=== PATIENT | female | born 1990 | race Caucasian/White ===

== ENCOUNTER → 2016-12-08 | Outpatient (CLI) | payer OTHER ==
[2016-12-08 10:55] LABS: HEMATOCRIT 42.7 % (37.0-47.0); HEMOGLOBIN 14.3 g/dL (12.0-16.0); MEAN CORPUSCULAR HEMOGLOBIN 29.9 PG (27-31); MEAN CORPUSCULAR HGB CONC 33.5 g/dL (33-37); MEAN CORPUSCULAR VOLUME 89.1 FL (81-99); MEAN PLATELET VOLUME 9.4 FL (7.4-12.2); RED BLOOD COUNT 4.79 10^6/uL (4.20-5.40)
[2016-12-08 11:04] LABS: BLOOD UREA NITROGEN 8 mg/dL (7-22); BUN/CREATININE RATIO 11.42 (6-20); CALCIUM 9.3 mg/dL (8.7-10.7); EST GLOMERULAR FILTRATION > 60 (>60 ml/min/1.73m(2)); SERUM ALBUMIN 4.4 g/dL (3.5-4.8)
[2016-12-08 11:48] LABS: CHOL/HDL RATIO 3.56 RATIO (0-4.0); LDL CHOLESTEROL,CALCULATED 80.2 mg/dL
== END ==
LOC: LAB 10:32
PROVIDERS: ATTEND Family Medicine
DX: Z00.00 Encounter for general adult medical examination without abnormal findings (principal); E03.9 Hypothyroidism, unspecified; M32.9 Systemic lupus erythematosus, unspecified; G40.909 Epilepsy, unspecified, not intractable, without status epilepticus
CPT/HCPCS: 36415; 80053; 80061; 84439; 84443; 85027; 85652

== ENCOUNTER → 2017-01-15 | Outpatient (CLI) | payer OTHER ==
--- NOTE | 2017-01-15 16:20 | DI ---
US PELVIC-TRANSVAGINAL,01/15/2017 2:29 PM: Clinical History: Verify placement of intrauterine device. Previous Exam: None at this facility. Findings: Multiple transvaginal grayscale and color Doppler sonographic images are obtained through the pelvis demonstrating a normal retroverted uterus measuring 7.0 x 4.3 x 3.6 cm containing a linear hyperechoi c area with posterior shadowing within the uterine fundus. The right ovary measures 3.2 0.3 x 1.5 cm containing both venous and arterial Doppler waveforms. Left ovary measures 2.6 x 2.0 x 1.3 cm also with normal Doppler flow. Impression: Intrauterine device in good position in the fundal portion of the endometrial canal.
== END ==
LOC: US 14:23
PROVIDERS: ATTEND Family Medicine
DX: Z30.430 Encounter for insertion of intrauterine contraceptive device (principal)
CPT/HCPCS: 76830

== ENCOUNTER 2017-02-16 21:14 | Emergency (ER) | payer OTHER ==
[2017-02-16 21:26] VITALS: RESP 20; TEMP 96.1
[2017-02-16] MEDS ORDERED: SUMAtriptan Succinate 6 MG/0.5 ML SUBCUT ONE (21:34)
--- NOTE | 2017-02-17 06:27 | PDOC ---
Headache HPI - General Chief Complaint: Headache Stated Complaint: MIGRAIN Date Seen by Provider: 02/16/17 Time Seen by Provider: 21:20 Source: POSITIVE: Patient Exam Limitations: POSITIVE: No limitations Nurse's Notes Reviewed & Considered: Yes - History of Present Illness Initial Comments: The patient is a 27-year-old female. She presents to the emergency room complaining of a bifrontal headache since around 1 PM today. She states she has a long-standing history of similar episodes and states she's been diagnosed with migraine headaches. She states she's had normal CT scans and MRI scans of the brain. She states that she has been prescribed Imitrex subcutaneous to be used at home for her episodes, but has been out of this medication recently. Present headache is identical to her previous episodes. She's had some associated nausea but no vomiting. Mild photophobia. She states she gets an episode of headache every few weeks and can have one to 3 episodes per month. Body Location Affected: REPORTS: Head Timing: REPORTS: Constant, Gradual Duration: <24 hours (8-9 hours) Severity: Moderate Quality: REPORTS: Throbbing Context: DENIES: CO Exposure, Tick Bite, Insect Bite, Recent Head Injury, Other Associated Symptoms: REPORTS: Sensitivity to Light, Nausea. DENIES: Fever, Chills, Sweating, Problems with Vision, Visual Disturb Preceding, [place] Preceding, Typical of Prior Aura(s), Vomiting, Neck Pain, Stiffness, Speech Problems, Weakness, Trouble Walking, Tingling, Numbness, Dizziness, Lightheadedness, Other Exacerbated by: REPORTS: Light Any Prior Injuries Related to Current Complaint?: No - Patient Home Medications Home Medications: Home Medications Levonorgestrel [Mirena] 1 each IY PROCEDURE unit 12/02/16 Levothyroxine Sodium [Synthroid] 1 tab PO DAILY #30 tab 12/16/16 Levetiracetam [Keppra] 1,000 mg PO BID #75 tab 12/23/16 - Patient Allergies Allergies/Adverse Reactions: Allergies Allergy/AdvReac Type Severity Reaction Status Date / Time ondansetron HCl Allergy Unknown DYSPHORIA Verified 02/16/17 21:16 [From Zofran (as hydrochloride)] Sulfa (Sulfonamide Allergy Unknown RASH Verified 02/16/17 21:16 Antibiotics) Penicillins Allergy HIVES Verified 02/16/17 21:16 Past Medical History - heen HEENT History: Denies History Cardiovascular History: Denies History Respiratory History: Denies History Gastrointestinal History: Denies History Genitourinary History: Denies History Endocrine History: Lupus Musculoskeletal History: Denies History Neurological History: Seizures Blood Disorders: Denies History Psychiatric History: Denies History Female Reproductive History: Denies History Obstetrical History: Denies History Cancer History: Denies History In Past Year Been Physically Harmed or Verbally Threatened: No History of MDRO: No Tobacco Use: Never Smoker Alcohol Use: Occasionally Substance Use Type: None Previous Surgical History: No Significant Family History: No pertinent family hx Past Medical History Reviewed: Reviewed - No Changes ROS - Limitations ROS Limitations: No Limitations Constitution: REPORTS: Denies Symptoms Cardiovascular: REPORTS: Denies Cardiac Symptoms Respiratory: REPORTS: Denies Resp Symptoms Neurological: REPORTS: Headache Gastrointestinal: REPORTS: Nausea Endocrine: REPORTS: Denies Symptoms Musculoskeletal: REPORTS: Denies MS Symptoms Genitourinary: REPORTS: Denies Symptoms Eyes: REPORTS: Denies Symptoms ENT: REPORTS: Denies Symptoms Skin: REPORTS: Denies Skin Symptoms Lympathic: REPORTS: Denies Lympathic Symptoms Immunologic: POSITIVE: Denies Symptoms Psychiatric: POSITIVE: Denies Psych Symptoms Headache Exam - General Appearance General Appearance: POSITIVE: Alert, Cooperative, No Acute Distress, No Evidence of Trauma - HEENT Head / Face: POSITIVE: Atraumatic, Normal Inspection, No Facial Swelling Eyes: POSITIVE: Inspection Normal, PERRL, EOM's Intact, Eyelids Uninjured, Conjunctivae Uninjured, No Nystagmus, No Globe Trauma, Sclera Normal, Normal Fundoscopic Exam, Ant. Chamber Nml Inspect., No Papilledema Ears: POSITIVE: Ears Normal Inspection, TM Normal Inspection, Auricle Normal, External Canal Normal Nose: POSITIVE: Inspection Normal, No Apparent Trauma, Nares Normal, No CSF Leak Oropharynx: POSITIVE: External Inspection Nml, Pharynx Inspect. Nml, Airway Intact, Voice Normal, Moist Mucous Membranes, No Oral Injury, Lips Normal, Gums Normal, No Drooling, No Thrush, Normal Gag Reflex Dental: POSITIVE: No Dental Injury - Pupil Size Pupil Size: 3 mm: Bilateral (PERRLA) - Neck Neck: POSITIVE: Normal Inspection, Supple - Respiratory / CVS Respiratory / CVS: POSITIVE: Chest Non-Tender, No Respiratory Distress, Heart Sounds Normal, Regular Rate/Rhythm, Breath Sounds Normal Peripheral Pulses: Radial (R): 2+, Radial (L): 2+ - Skin Skin: POSITIVE: Intact, Normal Palpation - Extremities Extremity: Non-Tender: (All Extremities), Normal ROM: (All Extremities), Normal Inspection: (All Extremities) - Neuro / Psych Higher Functions: POSITIVE: Alert, Oriented x3, Normal Speech, Mood Appropriate , Affect Appropriate Cranial Nerves: POSITIVE: Normal As Tested, No Evidence of Acute CVA Cerebellar: POSITIVE: Normal As Tested Sensorimotor: POSITIVE: No Motor Deficits, No Sensory Deficits Images - Head Head: 1 - Area of headache Headache Progress - Patient's Progress Pain Medication Addressed: POSITIVE: Yes (Patient given Imitrex, 6 mg subcutaneously with relief of headache) School/Work Release Addressed: POSITIVE: Not Applicable Re-Examine Time:: 22:15 Re-Examine Comment: Headache relief Status: POSITIVE: Improved, Re-Examined, Pain Relieved - Consult Counseled: POSITIVE: Patient, RE: DX, RE: Need for F/U Patient Care Time - Estimated PCT Patient Care Time (In Minutes): 32 Vital Signs - VS Reviewed Vital Signs Reviewed: Yes Discharge Clinical Impression: Migraine Discharge Disposition: Discharged to Home Condition: Stable Patient Instructions Given at Discharge: Migraine Headache (ED) Additional Instructions: Go home and rest tonight. Call your primary care provider tomorrow and see about getting a refill on your Imitrex. Return anytime if condition worsens, or as necessary. Follow Up With: MICKEY AVILA [Primary Care Provider] - (Instructions as above. Follow-up with your primary care provider. Return as necessary.)
== END 2017-02-16 22:22 | disposition home or self-care (01) ==
LOC: ER 21:14
DX: G43.009 Migraine without aura, not intractable, without status migrainosus (principal); R11.0 Nausea; H53.143 Visual discomfort, bilateral
CPT/HCPCS: 96372; 99282 ×2; J3030